=== PATIENT | female | born 1985 | race Asian ===

== ENCOUNTER 2016-08-04 08:50 | Day surgery (SDC) | payer OTHER ==
[~2016-08-04 08:50] MED LIST: NO HOME MEDICATION XX
== END 2016-08-04 15:30 ==
LOC: SHSB 08:50 → ORW 10:48 → PACU 12:17 → SHSB 13:08
PROC: 0UB14ZZ Excision of Left Ovary, Percutaneous Endoscopic Approach (ICD-10-PCS; principal; 2016-08-04)
DX: D27.1 Benign neoplasm of left ovary (principal); N80.3 Endometriosis of pelvic peritoneum
CPT/HCPCS: J2175; J7030